=== PATIENT | female | born 1945 | race Caucasian/White ===

== ENCOUNTER 2017-11-11 13:24 | Observation (INO) ==
--- NOTE | 2017-11-11 14:04 | Emergency Department Note ---
Disposition Clinical Impression: Bradycardia, Dyspnea Hypertension Qualifiers: Hypertension type: unspecified Qualified Code(s): I10 - Essential (primary) hypertension Disposition: Admitted As Inpatient Condition: Fair General Adult HPI - General Chief complaint: ED Arrhythmia/Palpitations Stated complaint: "Afib/HTN" sent from PCP Time Seen by Provider: 11/11/17 13:36 - History of Present Illness Pain Scale: 0 - Related Data Home Medications Medication Instructions Recorded Confirmed Apixaban [Eliquis] 5 mg PO BID 11/11/17 11/11/17 Aspirin [Lo-Dose Aspirin EC] 81 mg PO DAILY 11/11/17 11/11/17 Citalopram Hydrobromide 30 mg PO HS 11/11/17 11/11/17 [Citalopram HBr] Donepezil [Aricept] 5 mg PO HS 11/11/17 11/11/17 Ferrous Sulfate [Iron] 325 mg PO 2XW 11/11/17 11/11/17 HydrOXYzine Pamoate [Vistaril] 50 mg PO TID 11/11/17 11/11/17 Metoprolol [Lopressor] 25 mg PO BID 11/11/17 11/11/17 Mirtazapine [Remeron] 30 mg PO HS 11/11/17 11/11/17 Omeprazole [PriLOSEC] 40 mg PO DAILY 11/11/17 11/11/17 Oxybutynin Chloride [Ditropan Xl] 10 mg PO DAILY 11/11/17 11/11/17 risperiDONE [Risperidone] 1 mg PO HS PRN 11/11/17 11/11/17 Allergies Allergy/AdvReac Type Severity Reaction Status Date / Time No Known Allergies Allergy Verified 11/11/17 16:36 Past Medical History - Past Medical History Medical history: Reports: COPD, dementia, GERD Surgical history: Reports: hysterectomy Psychiatric history: Reports: anxiety 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 ANALYST history - Social History Smoking Status: Current every day smoker Alcohol use: Reports: none Drug use: Reports: none Physical Exam - General General appearance: alert, in no apparent distress Course Vital Signs Temperature 97.5 F L 11/11/17 13:31 Pulse Rate 52 11/11/17 13:31 Respiratory Rate 15 11/11/17 13:31 Blood Pressure 185/98 11/11/17 13:31 O2 Sat by Pulse Oximetry 100 11/11/17 13:31 Temperature 97.8 F 11/11/17 19:37 Pulse Rate 55 11/11/17 19:37 Respiratory Rate 16 11/11/17 19:37 Blood Pressure 150/88 11/11/17 19:37 O2 Sat by Pulse Oximetry 97 11/11/17 19:37 Oxygen Delivery Oxygen Delivery Room Air Medical Decision Making - Lab Data Result diagrams: 11/11/17 14:07 11/11/17 14:07 Lab Results 11/11/17 11/11/17 11/11/17 Range/Units 14:07 14:07 14:07 WBC 9.0 (4.3-11.1) K/mcL RBC 5.01 H (3.82-4.97) M/mcL Hgb 13.8 (11.5-15.4) g/dL Hct 42.4 (35.3-44.9) % MCV 84.6 (83.0-100.0) fL MCH 27.5 L (28.0-33.3) pg MCHC 32.5 (31.6-35.5) g/dL RDW 13.2 (11.5-14.5) % Plt Count 185 (140-400) K/mcL MPV 9.6 (9.4-12.4) fL Immature Gran % 0.8 (0-4) % Seg Neutrophils % 45.8 % Lymphocytes % 40.1 % Monocytes % 9.9 % Eosinophils % 2.4 % Basophils % 1.0 % Neutrophils # 4.1 (1.6-8.9) K/mcL Lymphocytes # 3.6 (0.6-4.6) K/mcL Monocytes # 0.9 (0.0-1.3) K/mcL Eosinophils # 0.2 (0.0-0.6) K/mcL Basophils # 0.1 (0.0-0.2) K/mcL PT 14.8 H (9.4-12.1) Seconds INR 1.3 APTT 34.7 (26.0-36.0) Seconds Sodium (136-145) mEq/L Potassium (3.5-5.1) mEq/L Chloride (98-107) mEq/L Carbon Dioxide (23-29) mEq/L BUN (8-23) mg/dL Creatinine (0.60-1.20) mg/dL Est GFR ( Amer) (> 60) Est GFR (Non-Af Amer) (> 60) BUN/Creatinine Ratio (6-26) Glucose (70-105) mg/dL Calculated Osmolality (280-300) Calcium (8.6-10.3) mg/dL Troponin I (< 0.04) ng/mL B-Natriuretic Peptide 107 H (Less than 100) pg/mL 11/11/17 Range/Units 14:07 WBC (4.3-11.1) K/mcL RBC (3.82-4.97) M/mcL Hgb (11.5-15.4) g/dL Hct (35.3-44.9) % MCV (83.0-100.0) fL MCH (28.0-33.3) pg MCHC (31.6-35.5) g/dL RDW (11.5-14.5) % Plt Count (140-400) K/mcL MPV (9.4-12.4) fL Immature Gran % (0-4) % Seg Neutrophils % % Lymphocytes % % Monocytes % % Eosinophils % % Basophils % % Neutrophils # (1.6-8.9) K/mcL Lymphocytes # (0.6-4.6) K/mcL Monocytes # (0.0-1.3) K/mcL Eosinophils # (0.0-0.6) K/mcL Basophils # (0.0-0.2) K/mcL PT (9.4-12.1) Seconds INR APTT (26.0-36.0) Seconds Sodium 142 (136-145) mEq/L Potassium 3.8 (3.5-5.1) mEq/L Chloride 107 (98-107) mEq/L Carbon Dioxide 28 (23-29) mEq/L BUN 20 (8-23) mg/dL Creatinine 1.03 (0.60-1.20) mg/dL Est GFR ( Amer) > 60 (> 60) Est GFR (Non-Af Amer) 53 L (> 60) BUN/Creatinine Ratio 19 (6-26) Glucose 51 L (70-105) mg/dL Calculated Osmolality 294 (280-300) Calcium 9.5 (8.6-10.3) mg/dL Troponin I < 0.03 (< 0.04) ng/mL B-Natriuretic Peptide (Less than 100) pg/mL Attestation Statement - Attestation Attestation: I examined this patient and my medical decision-making was reviewed with the Resident Physician. I agree with the documented findings, disposition and treatment plan as described except to the extent set forth below. Patient to the ED with her daughter. Daughter called cardiology office today because her heart rate is been running in the low 50s all weekend. Her blood pressure is been high. They instructed her to come to the ED for further evaluation. Patient is without complaint. On examination she is in no acute distress. Hypertensive. Heart rate in the 50s. Pleasant conversant. Confused. Heart slow and regular. Lungs clear. Abdomen soft. Plan. Cardiac workup. We will discuss her meds with cardiology. Patient discussed with cardiology who wants her admitted for control of her asymptomatic hypertension. Hospitalist accepts.
[2017-11-11 14:22] LABS: Basophils # 0.1 K/mcL (0.0-0.2); Eosinophils # 0.2 K/mcL (0.0-0.6); Eosinophils % 2.4 %; Hematocrit 42.4 % (35.3-44.9); Hemoglobin 13.8 g/dL (11.5-15.4); Immature Granulocytes % 0.8 % (0-4); Lymphocytes # 3.6 K/mcL (0.6-4.6); Lymphocytes % 40.1 %; Mean Corpuscular HGB Conc 32.5 g/dL (31.6-35.5); Mean Corpuscular Hemoglobin 27.5 pg (28.0-33.3); Mean Corpuscular Volume 84.6 fL (83.0-100.0); Mean Platelet Volume 9.6 fL (9.4-12.4); Monocytes # 0.9 K/mcL (0.0-1.3); Monocytes % 9.9 %; Neutrophils # 4.1 K/mcL (1.6-8.9); Platelet Count 185 K/mcL (140-400); Red Blood Count 5.01 M/mcL (3.82-4.97); Red Cell Distribution Width 13.2 % (11.5-14.5); Segmented Neutrophils % 45.8 %
--- NOTE | 2017-11-11 14:22 | Emergency Department Note ---
Disposition Clinical Impression: Bradycardia Hypertension Qualifiers: Hypertension type: unspecified Qualified Code(s): I10 - Essential (primary) hypertension Dyspnea Qualifiers: Dyspnea type: dyspnea on exertion Qualified Code(s): R06.09 - Other forms of dyspnea Disposition: Admitted As Inpatient Condition: Fair Time of Disposition: 16:57 General Adult HPI - General Chief complaint: ED Arrhythmia/Palpitations Stated complaint: "Afib/HTN" sent from PCP Time Seen by Provider: 11/11/17 13:36 Source: patient Mode of arrival: ambulatory Limitations: no limitations Nursing Notes Reviewed: Yes Vital Signs Reviewed: Yes - History of Present Illness HPI Narrative: 72-year-old female with 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 fib and hypertension presents for evaluation of A. fib and hypertension. Patient's family states the patient has had low heart rates in the 50s. Also noted be hypertensive in the 180S systolic. Did call the cardiology office who recommended her to go to the ER for evaluation. Family states the patient has not complained of anything besides being cold. Patient denies any chest penetrance of breath. No fevers or cough. No abdominal pain or nausea or vomiting. No recent changes in medications. Patient is on metoprolol as well as lisinopril. Patient is also anticoagulated. Pain Scale: 0 - Related Data Home Medications Medication Instructions Recorded Confirmed Apixaban [Eliquis] 5 mg PO BID 11/11/17 11/11/17 Aspirin [Lo-Dose Aspirin EC] 81 mg PO DAILY 11/11/17 11/11/17 Citalopram Hydrobromide 30 mg PO HS 11/11/17 11/11/17 [Citalopram HBr] Donepezil [Aricept] 5 mg PO HS 11/11/17 11/11/17 Ferrous Sulfate [Iron] 325 mg PO 2XW 11/11/17 11/11/17 HydrOXYzine Pamoate [Vistaril] 50 mg PO TID 11/11/17 11/11/17 Metoprolol [Lopressor] 25 mg PO BID 11/11/17 11/11/17 Mirtazapine [Remeron] 30 mg PO HS 11/11/17 11/11/17 Omeprazole [PriLOSEC] 40 mg PO DAILY 11/11/17 11/11/17 Oxybutynin Chloride [Ditropan Xl] 10 mg PO DAILY 11/11/17 11/11/17 risperiDONE [Risperidone] 1 mg PO HS PRN 11/11/17 11/11/17 Allergies Allergy/AdvReac Type Severity Reaction Status Date / Time No Known Allergies Allergy Verified 11/11/17 16:36 All systems ED: reviewed and negative except as stated. 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 DETAILER history - Social History Smoking Status: Current every day smoker Alcohol use: Reports: none Drug use: Reports: none Physical Exam - General Limitations: no limitations General appearance: alert, in no apparent distress - Head Head exam: atraumatic, normocephalic, normal inspection - Eye Eye exam: Present: normal appearance, PERRL, EOMI - ENT ENT exam: normal exam, normal oropharynx, mucous membranes moist - Neck Neck exam: Present: normal inspection - Chest Chest inspection: Present: normal inspection, symmetric chest wall rise - Respiratory Respiratory exam: Present: normal lung sounds bilaterally. Absent: respiratory distress - Cardiovascular Cardiovascular exam: Present: regular rate, normal rhythm. Absent: systolic murmur - Abdominal Exam Abdominal exam: Present: soft, Non-Tender - Extremities Exam Extremities exam: Present: normal inspection, pedal edema (trace) - Back Exam Back exam: Present: normal inspection - Neurological Exam Neurological exam: Present: alert, oriented X3 - Skin Skin exam: Present: warm, dry, intact, normal color Course Course Narrative: Patient will get basic labs. - Reevaluation(s) Reevaluation #1: Patient's resting comfortably. No signs of acute distress. Time: 16:11 - Consultations Consultation #1: Discussed with cardiology who states that this is a hypertensive urgency and would recommend titrating her blood pressure in hospitalization. Time: 16:19 Vital Signs Temperature 97.5 F L 11/11/17 13:31 Pulse Rate 52 11/11/17 13:31 Respiratory Rate 15 11/11/17 13:31 Blood Pressure 185/98 11/11/17 13:31 O2 Sat by Pulse Oximetry 100 11/11/17 13:31 Temperature 97.8 F 11/11/17 19:37 Pulse Rate 55 11/11/17 19:37 Respiratory Rate 16 11/11/17 19:37 Blood Pressure 150/88 11/11/17 19:37 O2 Sat by Pulse Oximetry 97 11/11/17 19:37 Oxygen Delivery Oxygen Delivery Room Air Medical Decision Making - MDM Narrative Medical decision making narrative: Patient presented for concerns of elevated blood pressure and bradycardia. No recent change in that medication. Patient case was discussed with the on-call sand digger who states that the patient was complaining shortness of breath via telephone conversation was told to go to the ER. Concerns of elevated blood pressure in the setting of dyspnea. Patient family states that the patient's been more dyspneic with exertion. Oxygen saturation at rest is normal. Patient blood pressure was elevated with no recent changes in this medication. Will gradually decrease the patient's blood pressure see if she gets any symptomatic improvement. Patient's chest x-ray reveals atelectasis versus pneumonia. More likely atelectasis versus pneumonia as the patient does not have a fever or productive cough. Patient was noted be hypoglycemic. Patient is tolerating oral intake and blood sugar was rechecked. Patient would likely better adequate blood pressure control prior to discharge. - Lab Data Lab results reviewed: Yes I reviewed the patient's lab results. Result diagrams: 11/11/17 14:07 11/11/17 14:07 Lab Results 11/11/17 11/11/17 11/11/17 Range/Units 14:07 14:07 14:07 WBC 9.0 (4.3-11.1) K/mcL RBC 5.01 H (3.82-4.97) M/mcL Hgb 13.8 (11.5-15.4) g/dL Hct 42.4 (35.3-44.9) % MCV 84.6 (83.0-100.0) fL MCH 27.5 L (28.0-33.3) pg MCHC 32.5 (31.6-35.5) g/dL RDW 13.2 (11.5-14.5) % Plt Count 185 (140-400) K/mcL MPV 9.6 (9.4-12.4) fL Immature Gran % 0.8 (0-4) % Seg Neutrophils % 45.8 % Lymphocytes % 40.1 % Monocytes % 9.9 % Eosinophils % 2.4 % Basophils % 1.0 % Neutrophils # 4.1 (1.6-8.9) K/mcL Lymphocytes # 3.6 (0.6-4.6) K/mcL Monocytes # 0.9 (0.0-1.3) K/mcL Eosinophils # 0.2 (0.0-0.6) K/mcL Basophils # 0.1 (0.0-0.2) K/mcL PT 14.8 H (9.4-12.1) Seconds INR 1.3 APTT 34.7 (26.0-36.0) Seconds Sodium (136-145) mEq/L Potassium (3.5-5.1) mEq/L Chloride (98-107) mEq/L Carbon Dioxide (23-29) mEq/L BUN (8-23) mg/dL Creatinine (0.60-1.20) mg/dL Est GFR ( Amer) (> 60) Est GFR (Non-Af Amer) (> 60) BUN/Creatinine Ratio (6-26) Glucose (70-105) mg/dL Calculated Osmolality (280-300) Calcium (8.6-10.3) mg/dL Troponin I (< 0.04) ng/mL B-Natriuretic Peptide 107 H (Less than 100) pg/mL 11/11/17 Range/Units 14:07 WBC (4.3-11.1) K/mcL RBC (3.82-4.97) M/mcL Hgb (11.5-15.4) g/dL Hct (35.3-44.9) % MCV (83.0-100.0) fL MCH (28.0-33.3) pg MCHC (31.6-35.5) g/dL RDW (11.5-14.5) % Plt Count (140-400) K/mcL MPV (9.4-12.4) fL Immature Gran % (0-4) % Seg Neutrophils % % Lymphocytes % % Monocytes % % Eosinophils % % Basophils % % Neutrophils # (1.6-8.9) K/mcL Lymphocytes # (0.6-4.6) K/mcL Monocytes # (0.0-1.3) K/mcL Eosinophils # (0.0-0.6) K/mcL Basophils # (0.0-0.2) K/mcL PT (9.4-12.1) Seconds INR APTT (26.0-36.0) Seconds Sodium 142 (136-145) mEq/L Potassium 3.8 (3.5-5.1) mEq/L Chloride 107 (98-107) mEq/L Carbon Dioxide 28 (23-29) mEq/L BUN 20 (8-23) mg/dL Creatinine 1.03 (0.60-1.20) mg/dL Est GFR ( Amer) > 60 (> 60) Est GFR (Non-Af Amer) 53 L (> 60) BUN/Creatinine Ratio 19 (6-26) Glucose 51 L (70-105) mg/dL Calculated Osmolality 294 (280-300) Calcium 9.5 (8.6-10.3) mg/dL Troponin I < 0.03 (< 0.04) ng/mL B-Natriuretic Peptide (Less than 100) pg/mL - Radiology Data Radiology results reviewed: Yes I reviewed the patient's radiology results. - EKG Data EKG #1 EKG attestation: Yes I reviewed and interpreted this EKG. EKG shows normal: sinus rhythm Rate: bradycardia Rhythm: NSR Thor/QRS: normal T wave inversions noted in: v1 When compared to previous EKG there are: no significant changes Interpretation: no acute changes S.B.A.R. - S.B.A.R. Situation: Demographics Background: Presenting Complaint Assessment: Vital Signs, Course and respsone to treatment, Patient/Family Expectation Recommendation: Barrier(s) to disposition, Recommendation based on pending studies, treatments, or consults S.B.A.R. Report Given to: Dr. Mendez SMaria [email or web address] Repor Time: 16:57
[2017-11-11 14:29] LABS: INR 1.3; Prothrombin Time 14.8 Seconds (9.4-12.1)
[2017-11-11 14:32] LABS: Activated Partial Thrombo Time 34.7 Seconds (26.0-36.0)
[2017-11-11 14:46] LABS: Troponin I < 0.03 ng/mL (< 0.04)
[2017-11-11 14:58] LABS: BUN/Creatinine Ratio 19 (6-26); Blood Urea Nitrogen 20 mg/dL (8-23); Calcium 9.5 mg/dL (8.6-10.3); Carbon Dioxide 28 mEq/L (23-29); Chloride 107 mEq/L (98-107); Glucose 51 mg/dL (70-105); Osmolality,Calculated 294 (280-300); Potassium 3.8 mEq/L (3.5-5.1); Sodium 142 mEq/L (136-145); eGFR For Non-African Americans 53 (> 60)
[2017-11-11] MEDS ORDERED: Naloxone 0.4 MG/ML INJ IVP PRN (17:27)
[2017-11-11] MEDS ORDERED: Acetaminophen 325 MG TABLET PO PRN (17:27)
[2017-11-11] MEDS ORDERED: risperiDONE 1 MG TABLET PO PRN (17:28)
--- NOTE | 2017-11-11 18:07 | Internal Med History&Physical ---
Date of Encounter: 11/11/17 Time of Encounter: 18:05 Internal Medicine - H&P: HPI Chief complaint: Hypertensive urgency Admitted From: Emergency Dept Plans for Post Hospital Care: Home History of present illness: Ms. Hill is a 72 year old female patient with history of atrial fibrillation, hypertension, dementia and MRDD who presented to the ER with complaints of elevated blood pressure. She was seen by her mental health provider on Saturday and was found to have high blood pressure. They advised her to monitor her blood pressure which her daughter has been doing. She continued to be severely hypertensive. She was also noted to be bradycardic with a heart rate in the 40s. As such she came to the ER. She denies any chest pain or palpitations. No blurred vision. No headache. No orthopnea or PND. She does get exertional dyspnea with minimal exertion. She denies any dizziness or lightheadedness. Past Med Surg Social Fam HX - Past Medical History Attestation: Yes The following information was validated with the patient. Source: patient Medical history: COPD, dementia, GERD Additional medical history: emphysema. mental retardation Psychiatric history: anxiety - Past Surgical History Surgical History: hysterectomy - Social History Smoking Status: Current every day smoker Alcohol use: none Drug use: none - Additional Family History Additional family history: Family history reviewed and found to be noncontributory at this time Internal Medicine - H&P: Meds Apixaban [Eliquis] 5 mg PO BID 11/11/17 [History] Aspirin [Lo-Dose Aspirin EC] 81 mg PO DAILY 11/11/17 [History] Citalopram Hydrobromide [Citalopram HBr] 30 mg PO HS 11/11/17 [History] Donepezil [Aricept] 5 mg PO HS 11/11/17 [History] Ferrous Sulfate [Iron] 325 mg PO 2XW 11/11/17 [History] HydrOXYzine Pamoate [Vistaril] 50 mg PO TID 11/11/17 [History] Metoprolol [Lopressor] 25 mg PO BID 11/11/17 [History] Mirtazapine [Remeron] 30 mg PO HS 11/11/17 [History] Omeprazole [PriLOSEC] 40 mg PO DAILY 11/11/17 [History] Oxybutynin Chloride [Ditropan Xl] 10 mg PO DAILY 11/11/17 [History] risperiDONE [Risperidone] 1 mg PO HS PRN 11/11/17 [History] 3 Allergy/AdvReac Type Severity Reaction Status Date / Time No Known Allergies Allergy Verified 11/11/17 16:36 All Systems PM: A 10-system review of systems was performed and is negative for pertinent findings except as documented above in the HPI. - Constitutional Constitutional: no chills, no fever(s), no night sweats - EENT Eyes: no change in vision, no discharge, no pain, no photophobia Ears: no ear discharge, no ear pain, no tinnitus Nose, mouth and throat: no dysphagia, no nasal discharge, no neck pain, no sore throat - Cardiovascular Cardiovascular ROS IM: no chest pain, no diaphoresis, no dyspnea, no lightheadedness, no palpitations, no syncope - Respiratory Respiratory: dyspnea on exertion, no cough, no dyspnea, no wheezing, no excessive phlegm production - Gastrointestinal Gastrointestinal: no abdominal pain, no diarrhea, no hematemesis, no hematochezia, no melena, no nausea, no vomiting - Genitourinary Genitourinary: no change in urinary stream, no dysuria, no flank pain, no hematuria - Musculoskeletal Musculoskeletal ROS IM: no numbness, no tingling - Integumentary Integumentary IM: no rash, no unusual bruising - Neurological Neurological ROS: no confusion, no convulsions, no focal weakness, no numbness, no tingling, no tremor(s) - Hematologic/Lymphatic Hematologic/Lymphatic: no easy bruising - Constitutional Vitals: Temp Pulse Resp BP Pulse Ox 97.5 F L 48 16 161/87 99 11/11/17 13:52 11/11/17 17:05 11/11/17 17:54 11/11/17 17:54 11/11/17 17:05 General appearance: Present: cooperative, A&O X 3, pleasant, no acute distress, answers questions appropriately Exam: . - Neck Neck exam general surgery: Present: supple, trachea midline. Absent: lymphadenopathy - Respiratory Respiratory exam: Present: CTAB. Absent: accessory muscle use, rales, rhonchi, wheezes - Cardiovascular Cardiovascular exam: Present: RRR, +S1, +S2. Absent: diastolic murmur, gallop, rubs, systolic murmur - GI/Abdominal GI/Abdominal exam: Present: normal bowel sounds, soft, no peritoneal signs. Absent: distended, tenderness - Extremities Exam Extremities exam: Present: warm, radial pulses palpable and symmetrical. Absent : calf tenderness, cyanotic, pedal edema - Neurological Exam Neurological exam: Present: CN II-XII intact, oriented X3, no focal deficits. Absent: facial droop, speech deficit Internal Med - H&P Results - Labs CBC & Chem 7: 11/11/17 14:07 11/11/17 14:07 - EKG Data -: EKG Interpreted by Myself EKG shows normal: sinus rhythm Rate: bradycardia - Assessment and plan (1) Hypertensive urgency Current Visit: Yes Status: Acute Assessment and plan: Patient with accelerated hypertension. No signs of end organ damage. Monitor vital signs closely. Patient takes metoprolol at home. However she has been bradycardic. Will hold metoprolol for now. Start patient on amlodipine. We will also add hydralazine 10 mg IV every 6 ours as needed for systolic blood pressure greater than 160. (2) Atrial fibrillation Current Visit: Yes Status: Chronic Assessment and plan: Currently in sinus rhythm with bradycardia. Possible sick sinus syndrome. Will monitor with telemetry. Hold metoprolol for now. Continue anticoagulation with Eliquis. Denies any dizziness or lightheadedness but does have exertional dyspnea. Qualifiers: Atrial fibrillation type: chronic Qualified Code(s): I48.2 - Chronic atrial fibrillation (3) Dementia Current Visit: Yes Status: Chronic Assessment and plan: Continue Aricept Qualifiers: Dementia type: unspecified type Dementia behavioral disturbance: without behavioral disturbance Qualified Code(s): F03.90 - Unspecified dementia without behavioral disturbance (4) Bradycardia Current Visit: Yes Status: Acute Assessment and plan: Management as above (5) Dyspnea Current Visit: Yes Status: Chronic Assessment and plan: Patient reports chronic exertional dyspnea. Reviewing her records, she had a 2- D echocardiogram done in May of this year which showed EF of 60% with indeterminate diastolic function. She does not have pedal edema at this time. However her BNP is elevated. Will recheck 2-D echocardiogram. Start patient on low-dose Lasix. Qualifiers: Dyspnea type: dyspnea on exertion Qualified Code(s): R06.09 - Other forms of dyspnea - Time Spent With Patient Total time spent is greater than 50% in coordination of care (as documented) at patient's floor/unit and/or counseling patient:
[2017-11-11] MEDS: amLODIPine 5 MG TABLET PO SCH (18:53)
[2017-11-11] MEDS: Apixaban 5 MG TABLET PO SCH (20:20)
[2017-11-11] MEDS: hydrOXYzine pamoate 25 MG CAPSULE PO SCH (20:20)
[2017-11-11] MEDS: Mirtazapine 15 MG TABLET PO SCH (20:20)
[2017-11-12] MEDS: Aspirin Enteric Coated 81 MG Tablet PO SCH (07:48)
[2017-11-12] MEDS: hydrOXYzine pamoate 25 MG CAPSULE PO SCH ×3 (07:48→22:29)
[2017-11-12] MEDS: Apixaban 5 MG TABLET PO SCH ×2 (07:48→22:29)
[2017-11-12] MEDS: amLODIPine 5 MG TABLET PO SCH (07:48)
--- NOTE | 2017-11-12 10:04 | Internal Med Progress Note ---
Hospitalist Progress Note - Encounter Date of Encounter: 11/12/17 Time of Encounter: 10:03 - Subjective Interval History: Patient seen and examined at bedside Denies any CP or SOB at this time . Awaiting echo results - Exam Vitals: Temp Pulse Resp BP Pulse Ox 98.1 F 53 16 144/89 94 11/12/17 07:33 11/12/17 07:33 11/12/17 07:33 11/12/17 07:33 11/12/17 07:33 Exam: .General appearance: Present: cooperative, A&O X 3, pleasant, no acute distress , answers questions appropriately Exam: - Neck Neck exam general surgery: Present: supple, trachea midline. Absent: lymphadenopathy - Respiratory Respiratory exam: Present: CTAB. Absent: accessory muscle use, rales, rhonchi, wheezes - Cardiovascular Cardiovascular exam: Present: RRR, +S1, +S2. Absent: diastolic murmur, gallop, rubs, systolic murmur - GI/Abdominal GI/Abdominal exam: Present: normal bowel sounds, soft, no peritoneal signs. Absent: distended, tenderness - Extremities Exam Extremities exam: Present: warm, radial pulses palpable and symmetrical. Absent : calf tenderness, cyanotic, pedal edema - Neurological Exam Neurological exam: Present: CN II-XII intact, oriented X3, no focal deficits. Absent: facial droop, speech deficit - Assessment and Plan (1) Bradycardia Current Visit: Yes Status: Acute Assessment and Plan: Management as above (2) Dyspnea Current Visit: Yes Status: Chronic Assessment and Plan: Has been experiencing exertional dyspnea she did have a 2-D echo in May which showed EF of 60% with indeterminate diastolic function. BMP was elevated and she was given on low-dose Lasix. We will wait for echo results continue to monitor (3) Hypertensive urgency Current Visit: Yes Status: Acute Assessment and Plan: Patient presented with accelerated hypertension. No signs of end organ damage. Monitor vital signs closely. Patient takes metoprolol at home. However she has been bradycardic. Will hold metoprolol for now. HR has improved - sinus at 68 Start patient on amlodipine. We will also add hydralazine 10 mg IV every 6 ours as needed for systolic blood pressure greater than 160. (4) Atrial fibrillation Current Visit: Yes Status: Chronic Assessment and Plan: Currently in sinus rhythm with bradycardia. Possible sick sinus syndrome. Will monitor with telemetry. Hold metoprolol for now. Continue anticoagulation with Eliquis. Denies any dizziness or lightheadedness - will ambulate patient to see if dyspnea improving (5) Dementia Current Visit: Yes Status: Chronic Assessment and Plan: Continue Aricept - Time Spent with Patient Total time spent is greater than 50% in coordination of care (as documented) at patient's floor/unit and/or counseling patient: Internal Medicine: Result - Labs CBC & Chem 7: 11/11/17 14:07 11/11/17 14:07 - ABG Interpretation ABG results: PT/INR, D-dimer PT 14.8 Seconds (9.4-12.1) H 11/11/17 14:07 Consult Discharge Plan - Plan Referrals: Addison Whitney DO [Primary Care Provider] - (Requested a follow up appointment in 08-27, with Addison Whitney. ) (2) Dyspnea Qualifiers: Dyspnea type: dyspnea on exertion Qualified Code(s): R06.09 - Other forms of dyspnea (4) Atrial fibrillation Qualifiers: Atrial fibrillation type: chronic Qualified Code(s): I48.2 - Chronic atrial fibrillation (5) Dementia Qualifiers: Dementia type: unspecified type Dementia behavioral disturbance: without behavioral disturbance Qualified Code(s): F03.90 - Unspecified dementia without behavioral disturbance
[2017-11-12] MEDS ORDERED: amLODIPine 5 MG TABLET PO SCH (14:20)
[2017-11-12] MEDS ORDERED: Furosemide 20 MG/2 ML VIAL IVP SCH (14:30)
[2017-11-12] MEDS: Mirtazapine 15 MG TABLET PO SCH (22:30)
[2017-11-13 05:35] LABS: Basophils # 0.1 K/mcL (0.0-0.2); Basophils % 1.3 %; Eosinophils # 0.2 K/mcL (0.0-0.6); Eosinophils % 2.7 %; Hematocrit 43.3 % (35.3-44.9); Hemoglobin 14.1 g/dL (11.5-15.4); Immature Granulocytes % 0.6 % (0-4); Lymphocytes # 3.5 K/mcL (0.6-4.6); Lymphocytes % 40.5 %; Mean Corpuscular HGB Conc 32.6 g/dL (31.6-35.5); Mean Corpuscular Hemoglobin 27.3 pg (28.0-33.3); Mean Corpuscular Volume 83.8 fL (83.0-100.0); Mean Platelet Volume 9.8 fL (9.4-12.4); Monocytes # 0.7 K/mcL (0.0-1.3); Monocytes % 8.2 %; Platelet Count 182 K/mcL (140-400); Red Blood Count 5.17 M/mcL (3.82-4.97); Red Cell Distribution Width 13.3 % (11.5-14.5); Segmented Neutrophils % 46.7 %
[2017-11-13 05:48] LABS: BUN/Creatinine Ratio 21 (6-26); Blood Urea Nitrogen 20 mg/dL (8-23); Calcium 9.7 mg/dL (8.6-10.3); Carbon Dioxide 26 mEq/L (23-29); Chloride 107 mEq/L (98-107); Glucose 111 mg/dL (70-105); Osmolality,Calculated 297 (280-300); Potassium 3.7 mEq/L (3.5-5.1); Sodium 142 mEq/L (136-145); eGFR For Non-African Americans 57 (> 60)
[2017-11-13] MEDS ORDERED: Furosemide 20 MG/2 ML VIAL IVP SCH (09:00)
[2017-11-13] MEDS ORDERED: amLODIPine 5 MG TABLET PO SCH (09:00)
[2017-11-13] MEDS: Apixaban 5 MG TABLET PO SCH ×2 (09:05→20:52)
[2017-11-13] MEDS: Aspirin Enteric Coated 81 MG Tablet PO SCH (09:05)
[2017-11-13] MEDS: hydrOXYzine pamoate 25 MG CAPSULE PO SCH ×3 (09:05→20:52)
--- NOTE | 2017-11-13 17:36 | Electrocardiograph Report ---
[place] [id number] Test Date: 2017-11-11 Pat Name: Winsome Hill Department: EXAMC3 Room: 3B23 Gender: F Fan Mail Editor: : 1945 Requested By: Yobani Stewart Order Number: [id number] Reading MD: Ashwini Farfan Measurements Intervals [place] Rate: 51 P: 74 KS: 165 QRS: 40 QRSD: 88 T: 48 QT: 525 QTc: 484 Interpretive Statements Sinus rhythm Abnormal R-wave progression, early transition Electronically Signed On 11-13-2017 17:34:18 EDT by Ashwini Farfan
--- NOTE | 2017-11-13 19:21 | Internal Med Progress Note ---
Hospitalist Progress Note - Encounter Date of Encounter: 11/13/17 Time of Encounter: 15:00 - Subjective Interval History: Patient seen and examined at bedside Denies any CP or SOB at this time . Patient is asking to go home. I did discuss with the patient and daughter concerns about HR- discussed treatment plan - and possible cardiology consult Verbalized understanding - Exam Vitals: Temp Pulse Resp BP Pulse Ox 97.7 F 63 15 115/70 96 11/13/17 18:59 11/13/17 18:59 11/13/17 18:59 11/13/17 18:59 11/13/17 18:59 Exam: .General appearance: Present: cooperative, A&O X 3, pleasant, no acute distress , answers questions appropriately Exam: - Neck Neck exam general surgery: Present: supple, trachea midline. Absent: lymphadenopathy - Respiratory Respiratory exam: Present: CTAB. Absent: accessory muscle use, rales, rhonchi, wheezes - Cardiovascular Cardiovascular exam: Present: RRR, +S1, +S2. Absent: diastolic murmur, gallop, rubs, systolic murmur - GI/Abdominal GI/Abdominal exam: Present: normal bowel sounds, soft, no peritoneal signs. Absent: distended, tenderness - Extremities Exam Extremities exam: Present: warm, radial pulses palpable and symmetrical. Absent : calf tenderness, cyanotic, pedal edema - Neurological Exam Neurological exam: Present: CN II-XII intact, oriented X3, no focal deficits. Absent: facial droop, speech deficit - Assessment and Plan (1) Bradycardia Current Visit: Yes Status: Acute Assessment and Plan: Metoprolol initially held - HR did improve to rate 90 -100 sinus - no pauses noted on monitor overnight. We will resume metoprolol at a lower dose and monitor BP and HR Consult cardiology as needed - possible pacemaker (2) Dyspnea Current Visit: Yes Status: Chronic Assessment and Plan: Has been experiencing exertional dyspnea she did have a 2-D echo in May which showed EF of 60% with indeterminate diastolic function. BMP was elevated and she was given on low-dose Lasix. 11/13 repeat echo LVEF 60-65%. * Normal LV chamber size, wall thickness and function. * Normal left ventricular diastolic function. Normal right ventricular structure and function. Moderately dilated left atrium.Normal right atrial size. No evidence of PFO by color Doppler. (3) Hypertensive urgency Current Visit: Yes Status: Acute Assessment and Plan: Patient presented with accelerated hypertension. No signs of end organ damage. Monitor vital signs closely. Patient takes metoprolol at home. However she has been bradycardic. Will hold metoprolol for now. HR has improved - sinus at 68 Start patient on amlodipine. We will also add hydralazine 10 mg IV every 6 ours as needed for systolic blood pressure greater than 160. 11/13- BP has been stable - we will stop norvasc and start Metoprolol monitor BP (4) Atrial fibrillation Current Visit: Yes Status: Chronic Assessment and Plan: Currently in sinus rhythm with bradycardia. Possible sick sinus syndrome. Will monitor with telemetry. Hold metoprolol for now. Continue anticoagulation with Eliquis. Denies any dizziness or lightheadedness - will ambulate patient to see if dyspnea improving 11/13 Currently SR- HR improved after holding Metoprolol -will resume at a lower dose and monitor - if no improvement consult cardiology Continue anticoagulation with Eliquis. (5) Dementia Current Visit: Yes Status: Chronic Assessment and Plan: Continue Aricept - Time Spent with Patient Total time spent is greater than 50% in coordination of care (as documented) at patient's floor/unit and/or counseling patient: Internal Medicine: Result - Labs CBC & Chem 7: 11/13/17 04:27 11/13/17 04:27 Labs: Short CBC 11/13/17 Range/Units 04:27 WBC 8.5 (4.3-11.1) K/mcL Hgb 14.1 (11.5-15.4) g/dL Hct 43.3 (35.3-44.9) % Plt Count 182 (140-400) K/mcL Neutrophils # 4.0 (1.6-8.9) K/mcL BMP 11/13/17 04:27 Sodium 142 Potassium 3.7 Chloride 107 Carbon Dioxide 26 BUN 20 Creatinine 0.97 Glucose 111 H Calcium 9.7 - ABG Interpretation ABG results: PT/INR, D-dimer PT 14.8 Seconds (9.4-12.1) H 11/11/17 14:07 Consult Discharge Plan - Plan Referrals: Addison Whitney DO [Primary Care Provider] - 11/20/17 2:30 pm (. ) (2) Dyspnea Qualifiers: Dyspnea type: dyspnea on exertion Qualified Code(s): R06.09 - Other forms of dyspnea (4) Atrial fibrillation Qualifiers: Atrial fibrillation type: chronic Qualified Code(s): I48.2 - Chronic atrial fibrillation (5) Dementia Qualifiers: Dementia type: unspecified type Dementia behavioral disturbance: without behavioral disturbance Qualified Code(s): F03.90 - Unspecified dementia without behavioral disturbance
[2017-11-13] MEDS: Mirtazapine 15 MG TABLET PO SCH (20:54)
[2017-11-14 06:28] LABS: Basophils # 0.1 K/mcL (0.0-0.2); Eosinophils # 0.2 K/mcL (0.0-0.6); Eosinophils % 2.8 %; Hematocrit 42.9 % (35.3-44.9); Hemoglobin 13.7 g/dL (11.5-15.4); Immature Granulocytes % 0.6 % (0-4); Lymphocytes # 3.5 K/mcL (0.6-4.6); Lymphocytes % 40.2 %; Mean Corpuscular HGB Conc 31.9 g/dL (31.6-35.5); Mean Corpuscular Volume 84.6 fL (83.0-100.0); Monocytes # 0.8 K/mcL (0.0-1.3); Monocytes % 9.3 %; Platelet Count 173 K/mcL (140-400); Red Blood Count 5.07 M/mcL (3.82-4.97); Red Cell Distribution Width 13.4 % (11.5-14.5); Segmented Neutrophils % 46.1 %
[2017-11-14 06:59] LABS: BUN/Creatinine Ratio 24 (6-26); Blood Urea Nitrogen 22 mg/dL (8-23); Calcium 9.5 mg/dL (8.6-10.3); Carbon Dioxide 28 mEq/L (23-29); Chloride 105 mEq/L (98-107); Glucose 93 mg/dL (70-105); Osmolality,Calculated 291 (280-300); Potassium 3.7 mEq/L (3.5-5.1); Sodium 139 mEq/L (136-145); eGFR For Non-African Americans > 60 (> 60)
[2017-11-14 07:38] VITALS: BP 135/76
[2017-11-14] MEDS: Apixaban 5 MG TABLET PO SCH (08:47)
[2017-11-14] MEDS: Aspirin Enteric Coated 81 MG Tablet PO SCH (08:48)
[2017-11-14] MEDS: hydrOXYzine pamoate 25 MG CAPSULE PO SCH (08:49)
--- NOTE | 2017-11-14 10:02 | Discharge Summary ---
- NOTES TO OUTPATIENT PROVIDER Notes to Outpatient Provider: metorprolol decreased to 12.5mg BID. Advised patient to keep BP/HR log Orders not resulted at time of discharge: Pending orders 11/14/17 07:57 EKG [ECG 12 lead ECG] [ECG] Routine 11/15/17 04:00 CBC [Complete Blood Count] [HEME] AM 0400 Chem 7 [Basic Metabolic Panel] AM 0400 Date of Encounter: 11/14/17 Time of Encounter: 10:00 - Discharge Diagnosis (1) Bradycardia Priority: Primary Status: Acute (2) Dyspnea Priority: Secondary Status: Chronic Qualifiers: Dyspnea type: dyspnea on exertion Qualified Code(s): R06.09 - Other forms of dyspnea (3) Hypertensive urgency Priority: Secondary Status: Acute (4) Atrial fibrillation Priority: Secondary Status: Chronic Qualifiers: Atrial fibrillation type: chronic Qualified Code(s): I48.2 - Chronic atrial fibrillation (5) Dementia Priority: Secondary Status: Chronic Qualifiers: Dementia type: unspecified type Dementia behavioral disturbance: without behavioral disturbance Qualified Code(s): F03.90 - Unspecified dementia without behavioral disturbance Hospital course: Ms. Hill is a 72 year old female PMH of atrial fibrilation dementia and MRDD who presented to [facility] ED with complaints of elevated BP. She was seen by mental health professional earlier in the week and was found to have elevated BP was advised to monitor BP and to go to ER if remained elevated. She presented with BP 185/98, NO CP headaches or vision changes. EKG did show bradycardia with HR in the 40s She does have extertional dyspnea. Her BB was held and she was placed on amlodipine- Her BP was controlled, HR [id number], review of EKG did show any pauses or arrhythmias. Amlodipine was stopped and metoprolol restarted at lower dose 12.5mg BID. Again monitored overnight- HR stable - ranging from 49-90- no pauses or arrhythmias. She was ambulated in hallway with no dyspnea, maintaining HR 75. BP stable with systolic ranging from 107-135 and diastolic 88-76. She denies any CP palpitations or SOB Advised patient to follow up with PCP and cardiology since these providers know her best and can adjust medications accordingly. I discussed with the patient and her daughter about keeping a BP/HR log and to present to PCP/cardiology- I answered questions asked by the daughter and patient to the best of my ability. They verbalized understanding about medications and follow up appointments. She is hemodynamically stable and ready for discharge - Time Spent with Patient Total time spent providing and/or coordinating discharge services: - Discharge Medications Home Medications: Apixaban [Eliquis] 5 mg PO BID 11/11/17 [History] Aspirin [Lo-Dose Aspirin EC] 81 mg PO DAILY 11/11/17 [History] Citalopram Hydrobromide [Citalopram HBr] 30 mg PO HS 11/11/17 [History] Donepezil [Aricept] 5 mg PO HS 11/11/17 [History] Ferrous Sulfate [Iron] 325 mg PO 2XW 11/11/17 [History] HydrOXYzine Pamoate [Vistaril] 50 mg PO TID 11/11/17 [History] Mirtazapine [Remeron] 30 mg PO HS 11/11/17 [History] Omeprazole [PriLOSEC] 40 mg PO DAILY 11/11/17 [History] Oxybutynin Chloride [Ditropan Xl] 10 mg PO DAILY 11/11/17 [History] risperiDONE [Risperidone] 1 mg PO HS PRN 11/11/17 [History] Metoprolol [Lopressor] 12.5 mg PO BID #30 11/14/17 [Rx] Allergies/Adverse Reactions: 3 Allergy/AdvReac Type Severity Reaction Status Date / Time No Known Allergies Allergy Verified 11/11/17 16:36 Date of admission: 11/11/17 17:16 Primary care physician: Addison Whitney Consults: 11/13/17 18:19 Consult to Advice Clerk [CONS] Routine Reason for SW Consult: Family requesting POA Discharging clinician: Salina Sidhu Anticipated date of discharge: 11/14/17 - Constitutional Vitals: Temp Pulse Resp BP Pulse Ox 97.5 F L 53 15 135/76 96 11/14/17 07:36 11/14/17 07:36 11/14/17 07:36 11/14/17 07:36 11/14/17 07:36 General appearance: Present: cooperative, A&O X 3, pleasant, no acute distress, answers questions appropriately Exam: .General appearance: Present: cooperative, A&O X 3, pleasant, no acute distress , answers questions appropriately Exam: - Neck Neck exam general surgery: Present: supple, trachea midline. Absent: lymphadenopathy - Respiratory Respiratory exam: Present: CTAB. Absent: accessory muscle use, rales, rhonchi, wheezes - Cardiovascular Cardiovascular exam: Present: RRR, +S1, +S2. Absent: diastolic murmur, gallop, rubs, systolic murmur - GI/Abdominal GI/Abdominal exam: Present: normal bowel sounds, soft, no peritoneal signs. Absent: distended, tenderness - Extremities Exam Extremities exam: Present: warm, radial pulses palpable and symmetrical. Absent : calf tenderness, cyanotic, pedal edema - Neurological Exam Neurological exam: Present: CN II-XII intact, oriented X3, no focal deficits. Absent: facial droop, speech deficit - Head Head exam: Present: atraumatic, normocephalic - Eye Eye exam: Present: PERRL, conjuntiva pink, sclera anicteric Pupils: Present: PERRL - Neck Neck exam general surgery: Present: supple, trachea midline. Absent: lymphadenopathy - Respiratory Respiratory exam: Present: CTAB. Absent: accessory muscle use, rales, rhonchi, wheezes - Cardiovascular Cardiovascular exam: Present: RRR, +S1, +S2. Absent: diastolic murmur, gallop, rubs, systolic murmur - GI/Abdominal GI/Abdominal exam: Present: normal bowel sounds, soft, no peritoneal signs. Absent: distended, tenderness - Extremities Exam Extremities exam: Present: warm, radial pulses palpable and symmetrical. Absent : calf tenderness, cyanotic, pedal edema - Neurological Exam Neurological exam: Present: CN II-XII intact, oriented X3, no focal deficits. Absent: pronater drift, facial droop, speech deficit - Skin Skin exam: Present: dry, intact - Patient Status Disposition: Home, Self-Care Condition: Fair Functional capacity at discharge: independent ambulation Overall status at discharge: patient is back to baseline - Discharge Instructions Instructions: Atrial Fibrillation (DC), Chronic Hypertension (DC) Follow Up With: Saleem Ellis GAS PIT WORKER [Advanced Practice Nurse] - (Our office will call you with an appointment.) Addison Whitney DO [Primary Care Provider] - 11/20/17 2:30 pm (. ) - Diet and Activity Activity: increase activity as tolerated Diet: advance to your usual diet
== END 2017-11-14 11:58 | disposition home or self-care (01) ==
LOC: 3BNU 13:24 → EMEROOARM 13:24 → 3BNU 18:30
PROVIDERS: ADMIT Internal Medicine; ATTEND Internal Medicine

== ENCOUNTER 2018-10-21 21:30 | Observation (INO) ==
[2018-10-21] MEDS ORDERED: 0.9 % Sodium Chloride 1,000 ML IVC ONE (22:00)
--- NOTE | 2018-10-21 22:09 | Emergency Department Note ---
Disposition Clinical Impression: Altered mental status Qualifiers: Altered mental status type: somnolence Qualified Code(s): R40.0 - Somnolence Disposition: Still a Patient Referrals: Addison Whitney DO [Primary Care Provider] - Forms: ED Satisfaction Letter Time of Disposition: 22:59 Altered Mental Status HPI - General Chief Complaint: ED Altered Mental Status Stated Complaint: came home from dayhab. been sleeping. afib Time Seen by Provider: 10/21/18 21:39 Source: family Limitations: altered mental status Nursing Notes Reviewed: Yes Vital Signs Reviewed: Yes - History of Present Illness HPI Narrative: 73F with PMHx of dementia, COPD and HTN presents to the ED with her daughter with concern for altered mental status. Pt returned from adult day care today and has been somnolent and altered since. Daughter states she has complained of abdominal pain, and has vomited several times since being home today. Pt has never had alteration of mentation like this before. Pt has not been having any recent sick type symptoms recently according to daughter. - Related Data Home Medications Medication Instructions Recorded Confirmed Apixaban [Eliquis] 5 mg PO BID 11/11/17 11/11/17 Aspirin [Lo-Dose Aspirin EC] 81 mg PO DAILY 11/11/17 11/11/17 Citalopram Hydrobromide 30 mg PO HS 11/11/17 11/11/17 [Citalopram HBr] Donepezil [Aricept] 5 mg PO HS 11/11/17 11/11/17 Ferrous Sulfate [Iron] 325 mg PO 2XW 11/11/17 11/11/17 HydrOXYzine Pamoate [Vistaril] 50 mg PO TID 11/11/17 11/11/17 Mirtazapine [Remeron] 30 mg PO HS 11/11/17 11/11/17 Omeprazole [PriLOSEC] 40 mg PO DAILY 11/11/17 11/11/17 Oxybutynin Chloride [Ditropan XL] 10 mg PO DAILY 11/11/17 11/11/17 risperiDONE [Risperidone] 1 mg PO HS PRN 11/11/17 11/11/17 Previous Rx's Medication Instructions Recorded Metoprolol [Lopressor] 12.5 mg PO BID #30 11/14/17 predniSONE [PredniSONE] 40 mg PO DAILY #4 tablet 01/12/18 Ondansetron ODT [Zofran ODT] 4 mg SL Q4HR PRN #6 tab.rapdis 01/19/18 Allergies Allergy/AdvReac Type Severity Reaction Status Date / Time No Known Allergies Allergy Verified 10/21/18 21:37 All systems ED: reviewed and negative except as stated. Review of Systems: As Per HPI Constitutional: Reports: fever, weakness. Denies: chills Cardiovascular: Denies: chest pain, palpitations, dyspnea on exertion Respiratory: Denies: cough, dyspnea, wheezes Gastrointestinal: Reports: abdominal pain, nausea, vomiting. Denies: diarrhea Genitourinary: Denies: dysuria, hematuria Musculoskeletal: Denies: back pain, neck pain Neurological: Denies: headache Endocrine: Reports: fatigue Past Medical History - Past Medical History Attestation: Yes The following information was validated with the patient. Source: patient, old records reviewed Medical history: Reports: atrial fibrillation, COPD, dementia, GERD, hyperlipidemia Surgical history: Reports: hysterectomy Psychiatric history: Reports: anxiety COMPUTER BOOKKEEPER history: Reports: no COMPUTER BOOKKEEPER history - Social History Smoking Status: Never smoker Smokeless Tobacco Status: No Alcohol use: Reports: none Drug use: Reports: none Physical Exam - General Limitations: altered mental status General appearance: other (pt sleeping on exam. awakens to voice and can answer most questions appropriately but then falls back asleep.) - Head Head exam: atraumatic, normocephalic - Eye Eye exam: Present: normal appearance, EOMI - Chest Chest inspection: Present: normal inspection. Absent: tenderness, rash - Respiratory Respiratory exam: Present: normal lung sounds bilaterally. Absent: respiratory distress, wheezes - Cardiovascular Cardiovascular exam: Present: regular rate, normal rhythm - Abdominal Exam Abdominal exam: Present: soft, Non-Tender. Absent: distention, guarding, rebound, rigidity - Extremities Exam Extremities exam: Present: normal inspection. Absent: tenderness, pedal edema - Neurological Exam Neurological exam: Present: alert, CN II-XII intact, other (alert to self and place but not time). Absent: oriented X3, motor sensory deficit - Psychiatric Psychiatric exam: Present: normal affect, normal mood - Skin Skin exam: Present: warm, dry, intact Course Vital Signs Temperature 98.2 F 10/21/18 21:33 Pulse Rate 99 10/21/18 21:33 Respiratory Rate 20 10/21/18 21:33 Blood Pressure 166/103 10/21/18 21:33 O2 Sat by Pulse Oximetry 96 10/21/18 21:33 Temperature 98.2 F 10/21/18 21:33 Pulse Rate 99 10/21/18 21:33 Respiratory Rate 20 10/21/18 21:33 Blood Pressure 166/103 10/21/18 21:33 O2 Sat by Pulse Oximetry 96 10/21/18 21:33 Oxygen Delivery Oxygen Delivery Room Air Altered Mental Status - MDM Narrative Medical decision making narrative: Pt presents from home with altered mental status after being outside all day today. We will pursue an ams workup on this patient with EKG, labs, cxr, urinalysis and head CT. Pt will also be given narcan and a liter of fluids for possible medication overdose and dehydration. 2255 - Pts EKG does not demonstrate any acute ischemia. CXR shows atelectasis in the left lung. Head CT does not demonstrate any acute abnormalities. Pt will be signed out to the night team of Dr. Anguiano pending labs and with disposition being likely admission for further treatment of her alteration in mental status. - Medical Records Medical records reviewed: Yes I reviewed the patient's medical records. - Lab Data Lab results reviewed: Yes I reviewed the patient's lab results. - Radiology Data Radiology results reviewed: Yes I reviewed the patient's radiology results. - EKG Data EKG attestation: Yes I reviewed and interpreted this EKG. EKG results narrative: EKG obtained at 2143 on 10/21/2018 Heart rate 10 6 bpm, QRS duration 71, QT 356, QTC 473 Atrial fibrillation with rapid ventricular response. No signs of ST segment elevation or depression. No other acute abnormalities. Last EKG dated 01/12/2018 shows sinus rhythm at 54 bpm. No other acute changes when compared to previous EKG. TPA Checklist - LKW: 3-4.5 hrs Add. Warnings/Precautions Patient/family understanding: The patient/family members have been counseled and understood the risk, benefit, and alternatives of treatment. Attestation Statement - Attestation Attestation: Ailyn Avendaño D.O., examined this patient and my medical decision-making was reviewed with the Resident Physician. I agree with the documented findings, disposition and treatment plan as described except to the extent set forth below.
--- NOTE | 2018-10-21 22:50 | Emergency Department Note ---
Disposition Clinical Impression: Altered mental status Qualifiers: Altered mental status type: unspecified Qualified Code(s): R41.82 - Altered mental status, unspecified Disposition: Still a Patient Condition: Good Referrals: Addison Whitney DO [Primary Care Provider] - Forms: ED Satisfaction Letter Time of Disposition: 22:50 General Adult HPI - General Chief complaint: ED Altered Mental Status Stated complaint: [facility]. been sleeping. afib Time Seen by Provider: 10/21/18 21:39 Source: family Limitations: altered mental status - History of Present Illness Pain Scale: 0 - Related Data Home Medications Medication Instructions Recorded Confirmed Apixaban [Eliquis] 5 mg PO BID 11/11/17 11/11/17 Aspirin [Lo-Dose Aspirin EC] 81 mg PO DAILY 11/11/17 11/11/17 Citalopram Hydrobromide 30 mg PO HS 11/11/17 11/11/17 [Citalopram HBr] Donepezil [Aricept] 5 mg PO HS 11/11/17 11/11/17 Ferrous Sulfate [Iron] 325 mg PO 2XW 11/11/17 11/11/17 HydrOXYzine Pamoate [Vistaril] 50 mg PO TID 11/11/17 11/11/17 Mirtazapine [Remeron] 30 mg PO HS 11/11/17 11/11/17 Omeprazole [PriLOSEC] 40 mg PO DAILY 11/11/17 11/11/17 Oxybutynin Chloride [Ditropan XL] 10 mg PO DAILY 11/11/17 11/11/17 risperiDONE [Risperidone] 1 mg PO HS PRN 11/11/17 11/11/17 Previous Rx's Medication Instructions Recorded Metoprolol [Lopressor] 12.5 mg PO BID #30 11/14/17 predniSONE [PredniSONE] 40 mg PO DAILY #4 tablet 01/12/18 Ondansetron ODT [Zofran ODT] 4 mg SL Q4HR PRN #6 tab.rapdis 01/19/18 Allergies Allergy/AdvReac Type Severity Reaction Status Date / Time No Known Allergies Allergy Verified 10/21/18 21:37 Constitutional: Reports: fever, weakness. Denies: chills Cardiovascular: Denies: chest pain, palpitations, dyspnea on exertion Respiratory: Denies: cough, dyspnea, wheezes Gastrointestinal: Reports: abdominal pain, nausea, vomiting. Denies: diarrhea Genitourinary: Denies: dysuria, hematuria Musculoskeletal: Denies: back pain, neck pain Neurological: Denies: headache Endocrine: Reports: fatigue Past Medical History - Past Medical History Medical history: Reports: atrial fibrillation, COPD, dementia, GERD, hyperlipidemia Surgical history: Reports: hysterectomy Psychiatric history: Reports: anxiety LATEXER history: Reports: no LATEXER history - Social History Smoking Status: Never smoker Smokeless Tobacco Status: No Alcohol use: Reports: none Drug use: Reports: none Physical Exam - General Limitations: altered mental status General appearance: other (pt sleeping on exam. awakens to voice and can answer most questions appropriately but then falls back asleep.) Course Vital Signs Temperature 98.2 F 10/21/18 21:33 Pulse Rate 99 10/21/18 21:33 Respiratory Rate 20 10/21/18 21:33 Blood Pressure 166/103 10/21/18 21:33 O2 Sat by Pulse Oximetry 96 10/21/18 21:33 Temperature 98.2 F 10/21/18 21:33 Pulse Rate 99 10/21/18 21:33 Respiratory Rate 20 10/21/18 21:33 Blood Pressure 166/103 10/21/18 21:33 O2 Sat by Pulse Oximetry 96 10/21/18 21:33 Oxygen Delivery Oxygen Delivery Room Air Attestation Statement - Attestation Attestation: Ailyn Avendaño D.O., examined this patient and my medical decision-making was reviewed with the Resident Physician. I agree with the documented findings, disposition and treatment plan as described except to the extent set forth below. This is a 73-year-old female with a history of atrial fibrillation on Eliquis, dementia who presents due to altered mental status. Daughter states that she was at her daycare today and when she came home she has been sleeping ever since. She did have an episode of vomiting there. Daughter states no trauma was reported her. No change in her medications. Patient was otherwise at her baseline recently. No other complaints. Exam: Patient is arousable to verbal stimuli. She easily falls back asleep. She does follow commands when she wakes up. Her pupils are equal and reactive to light. She has normal motor strength in the upper and lower extremities. Heart is irregularly irregular, tachycardic. Lungs are clear to auscultation bilaterally. Abdomen is soft, nontender, no guarding or distention. Plan: CT of the head, chest x-ray, EKG, labs and urinalysis. ED Procedure Note: EKG interpretation - I agree with the resident physician's documentation and interpretation of the patient's EKG. Atrial fibrillation with RVR with a rate of 106. Normal axis. Normal intervals. Normal R-wave progression. No gross ST elevations or depressions. No acute ischemic findings. Lab still pending. The patient will be [facility] team pending final disposition.
[2018-10-21 23:08] LABS: Basophils # 0.1 K/mcL (0.0-0.2); Basophils % 0.8 %; Eosinophils # 0.3 K/mcL (0.0-0.6); Hematocrit 42.7 % (35.3-44.9); Hemoglobin 13.7 g/dL (11.5-15.4); Immature Granulocytes % 0.5 % (0-4); Lymphocytes # 3.5 K/mcL (0.6-4.6); Mean Corpuscular HGB Conc 32.1 g/dL (31.6-35.5); Mean Corpuscular Hemoglobin 26.2 pg (28.0-33.3); Mean Corpuscular Volume 81.8 fL (83.0-100.0); Mean Platelet Volume 9.4 fL (9.4-12.4); Monocytes # 0.7 K/mcL (0.0-1.3); Monocytes % 8.3 %; Neutrophils # 4.1 K/mcL (1.6-8.9); Platelet Count 171 K/mcL (140-400); Red Blood Count 5.22 M/mcL (3.82-4.97); Red Cell Distribution Width 13.8 % (11.5-14.5); Segmented Neutrophils % 47.4 %; White Blood Count 8.7 K/mcL (4.3-11.1)
[2018-10-21 23:16] LABS: INR 1.3; Prothrombin Time 15.1 Seconds (9.4-12.1)
[2018-10-21 23:18] LABS: Bacteria,Urine None Seen per hpf (None-Few); Hyaline Casts,Urine Few per lpf (None-Few); RBC,Urine 0-3 per hpf (0-3); Squamous Epithelial Cell,Urine Many per lpf (None-Few)
[2018-10-21 23:19] LABS: Activated Partial Thrombo Time 36.3 Seconds (26.0-36.0)
[2018-10-21 23:20] LABS: Bilirubin,Urine Negative (Negative); Clarity,Urine Clear (Clear); Color,Urine Yellow (Yellow); Glucose,Urine (UA) Normal (Normal); Ketones,Urine Negative (Negative)
[2018-10-21 23:21] LABS: Blood,Urine Negative (Negative); Leukocyte Esterase,Urine Negative (Negative); Nitrite,Urine Negative (Negative); Protein,Urine Negative (Neg-Trace); Specific Gravity,Urine 1.021 (1.010-1.025); Urobilinogen,Urine Normal (Normal)
--- NOTE | 2018-10-21 23:21 | Emergency Department Note ---
Disposition Clinical Impression: Altered mental status Qualifiers: Altered mental status type: somnolence Qualified Code(s): R40.0 - Somnolence Disposition: Admitted As Inpatient Condition: Good Referrals: Addison Whitney DO [Primary Care Provider] - Forms: ED Satisfaction Letter Time of Disposition: 23:40 General Adult HPI - General Chief complaint: ED Altered Mental Status Stated complaint: came home from [facility]. been sleeping. afib Time Seen by Provider: 10/21/18 21:39 Source: family Limitations: altered mental status - History of Present Illness Pain Scale: 0 - Related Data Home Medications Medication Instructions Recorded Confirmed Apixaban [Eliquis] 5 mg PO BID 11/11/17 11/11/17 Aspirin [Lo-Dose Aspirin EC] 81 mg PO DAILY 11/11/17 11/11/17 Citalopram Hydrobromide 30 mg PO HS 11/11/17 11/11/17 [Citalopram HBr] Donepezil [Aricept] 5 mg PO HS 11/11/17 11/11/17 Ferrous Sulfate [Iron] 325 mg PO 2XW 11/11/17 11/11/17 HydrOXYzine Pamoate [Vistaril] 50 mg PO TID 11/11/17 11/11/17 Mirtazapine [Remeron] 30 mg PO HS 11/11/17 11/11/17 Omeprazole [PriLOSEC] 40 mg PO DAILY 11/11/17 11/11/17 Oxybutynin Chloride [Ditropan XL] 10 mg PO DAILY 11/11/17 11/11/17 risperiDONE [Risperidone] 1 mg PO HS PRN 11/11/17 11/11/17 Previous Rx's Medication Instructions Recorded Metoprolol [Lopressor] 12.5 mg PO BID #30 11/14/17 predniSONE [PredniSONE] 40 mg PO DAILY #4 tablet 01/12/18 Ondansetron ODT [Zofran ODT] 4 mg SL Q4HR PRN #6 tab.rapdis 01/19/18 Allergies Allergy/AdvReac Type Severity Reaction Status Date / Time No Known Allergies Allergy Verified 10/21/18 21:37 Constitutional: Reports: fever, weakness. Denies: chills Cardiovascular: Denies: chest pain, palpitations, dyspnea on exertion Respiratory: Denies: cough, dyspnea, wheezes Gastrointestinal: Reports: abdominal pain, nausea, vomiting. Denies: diarrhea Genitourinary: Denies: dysuria, hematuria Musculoskeletal: Denies: back pain, neck pain Neurological: Denies: headache Endocrine: Reports: fatigue Past Medical History - Past Medical History Medical history: Reports: atrial fibrillation, COPD, dementia, GERD, hyperlipidemia Surgical history: Reports: hysterectomy Psychiatric history: Reports: anxiety PROCESS SAFETY MANAGER history: Reports: no PROCESS SAFETY MANAGER history - Social History Smoking Status: Never smoker Smokeless Tobacco Status: No Alcohol use: Reports: none Drug use: Reports: none Physical Exam - General Limitations: altered mental status General appearance: other (pt sleeping on exam. awakens to voice and can answer most questions appropriately but then falls back asleep.) Course Vital Signs Temperature 98.2 F 10/21/18 21:33 Pulse Rate 99 10/21/18 21:33 Respiratory Rate 20 10/21/18 21:33 Blood Pressure 166/103 10/21/18 21:33 O2 Sat by Pulse Oximetry 96 10/21/18 21:33 Temperature 98.2 F 10/21/18 21:33 Pulse Rate 102 10/21/18 23:00 Respiratory Rate 16 10/21/18 23:00 Blood Pressure 142/33 10/21/18 23:00 O2 Sat by Pulse Oximetry 96 10/21/18 23:00 Oxygen Delivery Oxygen Delivery Room Air Medical Decision Making - Lab Data Result diagrams: 10/21/18 22:55 10/21/18 22:55 Lab Results 10/21/18 10/21/18 10/21/18 Range/Units 22:55 22:55 22:55 WBC 8.7 (4.3-11.1) K/mcL RBC 5.22 H (3.82-4.97) M/mcL Hgb 13.7 (11.5-15.4) g/dL Hct 42.7 (35.3-44.9) % MCV 81.8 L (83.0-100.0) fL MCH 26.2 L (28.0-33.3) pg MCHC 32.1 (31.6-35.5) g/dL RDW 13.8 (11.5-14.5) % Plt Count 171 (140-400) K/mcL MPV 9.4 (9.4-12.4) fL Immature Gran % 0.5 (0-4) % Seg Neutrophils % 47.4 % Lymphocytes % 40.0 % Monocytes % 8.3 % Eosinophils % 3.0 % Basophils % 0.8 % Neutrophils # 4.1 (1.6-8.9) K/mcL Lymphocytes # 3.5 (0.6-4.6) K/mcL Monocytes # 0.7 (0.0-1.3) K/mcL Eosinophils # 0.3 (0.0-0.6) K/mcL Basophils # 0.1 (0.0-0.2) K/mcL PT 15.1 H (9.4-12.1) Seconds INR 1.3 APTT 36.3 H (26.0-36.0) Seconds Sodium 141 (136-145) mEq/L Potassium 3.9 (3.5-5.1) mEq/L Chloride 103 (98-107) mEq/L Carbon Dioxide 29 (23-29) mEq/L BUN 33 H (8-23) mg/dL Creatinine 1.31 H (0.60-1.20) mg/dL Est GFR ( Amer) 49 L (> 60) Est GFR (Non-Af Amer) 40 L (> 60) BUN/Creatinine Ratio 25 (6-26) Glucose 89 (70-105) mg/dL Calculated Osmolality 299 (280-300) Calcium 10.1 (8.6-10.3) mg/dL Total Bilirubin 0.6 (0.3-1.0) mg/dL Direct Bilirubin 0.1 (0.0-0.2) mg/dL Indirect Bilirubin 0.5 (0.0-1.2) mg/dL AST 29 (13-39) Units/L ALT 31 (7-52) Units/L Alkaline Phosphatase 80 (34-104) Units/L Creatine Kinase 360 H (30-223) Units/L Troponin I < 0.03 (< 0.04) ng/mL Serum Total Protein 6.8 (6.4-8.9) g/dL Albumin 4.1 (3.5-5.7) g/dL Globulin 2.7 (2.4-3.5) g/dL Albumin/Globulin Ratio 1.5 (1.1-2.2) Urine Color (Yellow) Urine Clarity (Clear) Urine pH (5.0-8.0) pH Units Ur Specific [place] (1.010-1.025) Urine Protein (Neg-Trace) mg/dL Urine Glucose (UA) (Normal) mg/dL Urine Ketones (Negative) mg/dL Urine Blood (Negative) Urine Nitrite (Negative) Urine Bilirubin (Negative) Urine Urobilinogen (Normal) mg/dL Ur Leukocyte Esterase (Negative) Urine Microscopic RBC (0-3) per hpf Ur Squamous Epith Cells (None-Few) per lpf Urine Bacteria (None-Few) per hpf Hyaline Casts (None-Few) per lpf Ur Culture Indicated? (NO) Urine Opiates Screen (Asrwzm=799) ng/mL Ur Buprenorphine Scrn (Cutoff=5) ng/mL Ur Barbiturates Screen (Ndhnvk=841) ng/mL Ur Phencyclidine Scrn (Cutoff=25) ng/mL Ur Amphetamines Screen (Dyahrg=1499) ng/mL U Benzodiazepines Scrn (Izdezw=251) ng/mL Urine Cocaine Screen (Cutoff= 300) ng/mL U Marijuana (THC) Screen (Cutoff = 50) ng/mL Ur Drug Screen Interp Ethyl Alcohol < 10 (Less than 10) mg/dL 10/21/18 10/21/18 Range/Units 23:04 23:04 WBC (4.3-11.1) K/mcL RBC (3.82-4.97) M/mcL Hgb (11.5-15.4) g/dL Hct (35.3-44.9) % MCV (83.0-100.0) fL MCH (28.0-33.3) pg MCHC (31.6-35.5) g/dL RDW (11.5-14.5) % Plt Count (140-400) K/mcL MPV (9.4-12.4) fL Immature Gran % (0-4) % Seg Neutrophils % % Lymphocytes % % Monocytes % % Eosinophils % % Basophils % % Neutrophils # (1.6-8.9) K/mcL Lymphocytes # (0.6-4.6) K/mcL Monocytes # (0.0-1.3) K/mcL Eosinophils # (0.0-0.6) K/mcL Basophils # (0.0-0.2) K/mcL PT (9.4-12.1) Seconds INR APTT (26.0-36.0) Seconds Sodium (136-145) mEq/L Potassium (3.5-5.1) mEq/L Chloride (98-107) mEq/L Carbon Dioxide (23-29) mEq/L BUN (8-23) mg/dL Creatinine (0.60-1.20) mg/dL Est GFR ( Amer) (> 60) Est GFR (Non-Af Amer) (> 60) BUN/Creatinine Ratio (6-26) Glucose (70-105) mg/dL Calculated Osmolality (280-300) Calcium (8.6-10.3) mg/dL Total Bilirubin (0.3-1.0) mg/dL Direct Bilirubin (0.0-0.2) mg/dL Indirect Bilirubin (0.0-1.2) mg/dL AST (13-39) Units/L ALT (7-52) Units/L Alkaline Phosphatase (34-104) Units/L Creatine Kinase (30-223) Units/L Troponin I (< 0.04) ng/mL Serum Total Protein (6.4-8.9) g/dL Albumin (3.5-5.7) g/dL Globulin (2.4-3.5) g/dL Albumin/Globulin Ratio (1.1-2.2) Urine Color Yellow (Yellow) Urine Clarity Clear (Clear) Urine pH 5.0 (5.0-8.0) pH Units Ur Specific [place] 1.021 (1.010-1.025) Urine Protein Negative (Neg-Trace) mg/dL Urine Glucose (UA) Normal (Normal) mg/dL Urine Ketones Negative (Negative) mg/dL Urine Blood Negative (Negative) Urine Nitrite Negative (Negative) Urine Bilirubin Negative (Negative) Urine Urobilinogen Normal (Normal) mg/dL Ur Leukocyte Esterase Negative (Negative) Urine Microscopic RBC 0-3 (0-3) per hpf Ur Squamous Epith Cells Many H (None-Few) per lpf Urine Bacteria None Seen (None-Few) per hpf Hyaline Casts Few (None-Few) per lpf Ur Culture Indicated? NO (NO) Urine Opiates Screen Negative (Cqjfdq=280) ng/mL Ur Buprenorphine Scrn Negative (Cutoff=5) ng/mL Ur Barbiturates Screen Negative (Nrzkzh=821) ng/mL Ur Phencyclidine Scrn Negative (Cutoff=25) ng/mL Ur Amphetamines Screen Negative (Mknosq=6635) ng/mL U Benzodiazepines Scrn Negative (Npdgrs=212) ng/mL Urine Cocaine Screen Negative (Cutoff= 300) ng/mL U Marijuana (THC) Screen Negative (Cutoff = 50) ng/mL Ur Drug Screen Interp See Below Ethyl Alcohol (Less than 10) mg/dL Attestation Statement - Attestation Attestation: Care of patient assumed from Dr. Avendaño pending labs, CT head, reevaluation. Patient presented with somnolence. Workup as endorsed to me at the time of signout is pending Exam the patient is somnolent but easily arousable. The patient will be admitted to the medicine service
[2018-10-21 23:24] LABS: Amphetamine Screen,Urine Negative ng/mL (Cutoff=1000); Barbiturate Screen,Urine Negative ng/mL (Cutoff=200); Benzodiazepines Screen,Urine Negative ng/mL (Cutoff=200); Cannabinoid Screen,Urine Negative ng/mL (Cutoff = 50); Cocaine Screen,Urine Negative ng/mL (Cutoff= 300); Opiate Screen,Urine Negative ng/mL (Cutoff=300); Phencyclidine Screen,Urine Negative ng/mL (Cutoff=25)
[2018-10-21 23:29] LABS: Alanine Aminotransferase 31 Units/L (7-52); Albumin 4.1 g/dL (3.5-5.7); Albumin/Globulin Ratio 1.5 (1.1-2.2); Alkaline Phosphatase 80 Units/L (34-104); Aspartate Amino Transferase 29 Units/L (13-39); BUN/Creatinine Ratio 25 (6-26); Bilirubin,Direct 0.1 mg/dL (0.0-0.2); Bilirubin,Indirect 0.5 mg/dL (0.0-1.2); Bilirubin,Total 0.6 mg/dL (0.3-1.0); Blood Urea Nitrogen 33 mg/dL (8-23); Calcium 10.1 mg/dL (8.6-10.3); Carbon Dioxide 29 mEq/L (23-29); Chloride 103 mEq/L (98-107); Creatine Kinase 360 Units/L (30-223); Ethanol < 10 mg/dL (Less than 10); Globulin 2.7 g/dL (2.4-3.5); Glucose 89 mg/dL (70-105); Osmolality,Calculated 299 (280-300); Potassium 3.9 mEq/L (3.5-5.1); Sodium 141 mEq/L (136-145); Total Protein 6.8 g/dL (6.4-8.9); Troponin I < 0.03 ng/mL (< 0.04); eGFR For African Americans 49 (> 60); eGFR For Non-African Americans 40 (> 60)
[2018-10-22] MEDS ORDERED: Naloxone 0.4 MG/ML INJ IVP PRN (06:33)
[2018-10-22] MEDS ORDERED: 0.9 % Sodium Chloride 1,000 ML IVC ONE (06:40)
--- NOTE | 2018-10-22 06:41 | Internal Med History&Physical ---
Date of Encounter: 10/22/18 Time of Encounter: 05:25 Internal Medicine - H&P: HPI Chief complaint: Altered mental status Admitted From: Emergency Dept Plans for Post Hospital Care: Home History of present illness: Ms. Hill is a 73 year old female Patient presented to the emergency department with altered mental status. Patient attended in adult daycare earlier in the day, and upon returning home she was more lethargic and not acting her usual self. She lives with family, who stated that she did vomit several times as well when she returned home. She had not had symptoms like this previously. She does have a baseline dementia, but her current mental status is different than her normal. Vital signs: Within normal limits CBC unremarkable BMP: Elevated creatinine 1.31, otherwise unremarkable. Creatine kinase 360 Ammonia 26 Liver function tests within normal limits Initial troponin undetectable Urinalysis negative for infection Urine tox screen negative Blood alcohol level less than 10 Chest x-ray showed no airspace consolidation Head CT showed no acute intracranial abnormality Abdomen and pelvis CT showed no acute findings. EKG: Atrial fibrillation, rate 106. QTC [address] elevations or depres sions. Emergency department patient was somnolent, answered questions but would fall asleep shortly after. She was given 1 L of IV fluids and admitted to the hospital for likely polypharmacy effects. Upon my evaluation, patient is resting comfortably in hospital bed in no acute distress. She is awake, alert and oriented 3. She is able to carry on full conversation without falling asleep. She denies chest pain, abdominal pain, nausea, vomiting, diarrhea and constipation. She did admit to the vomiting episodes earlier in the day. She had no complaints. Past Med Surg Social Fam HX - Past Medical History Medical history: atrial fibrillation, COPD, dementia, GERD, hyperlipidemia Additional medical history: emphysema. mental retardation Psychiatric history: anxiety - Past Surgical History Surgical History: hysterectomy Additional surgical history: EGD.bilateral phlebectomy - Social History Smoking Status: Never smoker Smokeless Tobacco Status: No Alcohol use: none Drug use: none - Family History Mother Hx Family Cardiac Disorders: Yes (heart disease) Internal Medicine - H&P: Meds Apixaban [Eliquis] 5 mg PO BID 11/11/17 [History] Aspirin [Lo-Dose Aspirin EC] 81 mg PO DAILY 11/11/17 [History] Citalopram Hydrobromide [Citalopram HBr] 30 mg PO HS 11/11/17 [History] Donepezil [Aricept] 5 mg PO HS 11/11/17 [History] HydrOXYzine Pamoate [Vistaril] 50 mg PO TID 11/11/17 [History] Mirtazapine [Remeron] 30 mg PO HS 11/11/17 [History] Omeprazole [PriLOSEC] 40 mg PO DAILY 11/11/17 [History] Oxybutynin Chloride [Ditropan XL] 10 mg PO DAILY 11/11/17 [History] risperiDONE [Risperidone] 1 mg PO HS PRN 11/11/17 [History] Metoprolol [Lopressor] 12.5 mg PO BID #30 11/14/17 [Rx] Allergy/AdvReac Type Severity Reaction Status Date / Time No Known Allergies Allergy Verified 10/21/18 21:37 All Systems PM: A 10-system review of systems was performed and is negative for pertinent findings except as documented above in the HPI. - Constitutional Vitals: Temp Pulse Resp BP Pulse Ox 97.6 F 109 14 120/80 96 10/22/18 02:33 10/22/18 02:33 10/22/18 02:33 10/22/18 02:33 10/22/18 02:33 General appearance: Present: cooperative, A&O X 3, pleasant, no acute distress, answers questions appropriately Exam: - - Head Head exam: Present: normal inspection - Eye Eye exam: Present: EOMI, normal appearance - Respiratory Respiratory exam: Present: CTAB. Absent: rales, respiratory distress, rhonchi, wheezes - Cardiovascular Cardiovascular exam: Present: irregular rhythm. Absent: diastolic murmur, systolic murmur - GI/Abdominal GI/Abdominal exam: Present: normal bowel sounds, soft. Absent: tenderness - Extremities Exam Extremities exam: Present: warm, radial pulses palpable and symmetrical. Absent: calf tenderness, pedal edema, tenderness - Neurological Exam Neurological exam: Present: alert, oriented X3, no focal deficits, strengths equal and symetr throughout. Absent: altered, motor sensory deficit, facial droop, speech deficit - Skin Skin exam: Present: dry, normal color, warm Internal Med - H&P Results - Labs CBC & Chem 7: 10/21/18 22:55 10/21/18 22:55 Labs: Short CBC 10/21/18 Range/Units 22:55 WBC 8.7 (4.3-11.1) K/mcL Hgb 13.7 (11.5-15.4) g/dL Hct 42.7 (35.3-44.9) % Plt Count 171 (140-400) K/mcL Neutrophils # 4.1 (1.6-8.9) K/mcL BMP 10/21/18 22:55 Sodium 141 Potassium 3.9 Chloride 103 Carbon Dioxide 29 BUN 33 H Creatinine 1.31 H Glucose 89 Calcium 10.1 Cardiac Enzymes 10/21/18 Range/Units 22:55 Troponin I < 0.03 (< 0.04) ng/mL Liver Function 10/21/18 Range/Units 22:55 Total Bilirubin 0.6 (0.3-1.0) mg/dL Direct Bilirubin 0.1 (0.0-0.2) mg/dL AST 29 (13-39) Units/L ALT 31 (7-52) Units/L Alkaline Phosphatase 80 (34-104) Units/L Albumin 4.1 (3.5-5.7) g/dL Urine 10/21/18 Range/Units 23:04 Urine Color Yellow (Yellow) Urine Clarity Clear (Clear) Urine pH 5.0 (5.0-8.0) pH Units Ur Specific [place] 1.021 (1.010-1.025) Urine Protein Negative (Neg-Trace) mg/dL Urine Glucose (UA) Normal (Normal) mg/dL - Impressions ITS Impressions Chest X-Ray 10/21/18 22:00 IMPRESSION: No airspace consolidation. Left basilar atelectasis. D/ / Harry Iyer / Harry Iyer Interpreting Provider: Harry Iyer Head CT 10/21/18 22:01 IMPRESSION: No acute intracranial abnormality. D/ / Harry Iyer / Harry Iyer Interpreting Provider: Harry Iyer Abdomen/Pelvis CT 10/21/18 23:02 IMPRESSION: No acute abdominopelvic findings. Irregular soft tissue overlying the sacrum. This could represent early changes of decubitus ulcer. Please correlate clinically. D/ / Harry Iyer / Harry Iyer Interpreting Provider: Harry Iyer - Assessment and Plan (1) Altered mental status Current Visit: Yes Status: Acute Assessment and plan: Now seems resolved. Patient's current presentation different than her ER presentation. It is thought that maybe due to her many sedating medicines that she is on perhaps the combined effect caused her to be more somnolent. There have been no medicine changes recently however. Patient also low but dehydrated which may be contributing. She received 1 L of IV fluids in the ER and her medicines from home were held overnight. Continue to monitor Consider restarting home meds in the morning Qualifiers: Altered mental status type: somnolence Qualified Code(s): R40.0 - Somnolence (2) JOAN (acute kidney injury) Current Visit: Yes Status: Acute Assessment and plan: Elevated creatinine at 1.31 above her normal. Patient received 1 L of IV fluids in the ER. Repeat labs in the morning Continue IV fluid hydration (3) Atrial fibrillation Current Visit: No Status: Chronic Assessment and plan: Chronic atrial fibrillation, patient takes Eliquis and metoprolol at home. Due to her presenting condition of increased somnolence home meds were mainly held overnight. Continue Eliquis Restart home meds in the morning if patient continues to be stable Qualifiers: Atrial fibrillation type: chronic Qualified Code(s): I48.2 - Chronic atrial fibrillation (4) Dementia Current Visit: No Status: Chronic Assessment and plan: Continue home meds at discharge Qualifiers: Dementia type: unspecified type Dementia behavioral disturbance: without behavioral disturbance Qualified Code(s): F03.90 - Unspecified dementia without behavioral disturbance (5) DVT prophylaxis Current Visit: Yes Status: Acute Assessment and plan: Continue home Eliquis - Time Spent With Patient Total time spent is greater than 50% in coordination of care (as documented) at patient's floor/unit and/or counseling patient: Greater than 35 minutes
[2018-10-22 07:17] VITALS: BP 127/79
[2018-10-22 08:15] LABS: Hematocrit 40.3 % (35.3-44.9); Hemoglobin 12.7 g/dL (11.5-15.4); Mean Corpuscular HGB Conc 31.5 g/dL (31.6-35.5); Mean Corpuscular Hemoglobin 26.2 pg (28.0-33.3); Mean Corpuscular Volume 83.1 fL (83.0-100.0); Mean Platelet Volume 9.5 fL (9.4-12.4); Platelet Count 165 K/mcL (140-400); Red Blood Count 4.85 M/mcL (3.82-4.97); Red Cell Distribution Width 13.7 % (11.5-14.5); White Blood Count 6.8 K/mcL (4.3-11.1)
[2018-10-22 08:33] LABS: Calcium 9.2 mg/dL (8.6-10.3); Potassium 3.9 mEq/L (3.5-5.1)
[2018-10-22] MEDS ORDERED: Apixaban 5 MG TABLET PO SCH (09:00)
[2018-10-22] MEDS ORDERED: risperiDONE 1 MG TABLET PO PRN (09:11)
--- NOTE | 2018-10-22 10:39 | Discharge Summary ---
- NOTES TO OUTPATIENT PROVIDER Notes to Outpatient Provider: f/u with PCP in one week. If HR persistently elevated above 100, please increase your Metoprolol to 25mg pO BID. Date of Encounter: 10/22/18 Time of Encounter: 10:24 - Discharge Diagnosis (1) Altered mental status Priority: Primary Status: Acute Assessment and Plan: Due to metabolic encephalopathy with dehydration Qualifiers: Altered mental status type: somnolence Qualified Code(s): R40.0 - Somnolence (2) JOAN (acute kidney injury) Priority: Primary Status: Acute (3) Atrial fibrillation Priority: Secondary Status: Chronic Qualifiers: Atrial fibrillation type: chronic Qualified Code(s): I48.2 - Chronic atrial fibrillation (4) Dementia Priority: Secondary Status: Chronic Qualifiers: Dementia type: unspecified type Dementia behavioral disturbance: without behavioral disturbance Qualified Code(s): F03.90 - Unspecified dementia without behavioral disturbance (5) DVT prophylaxis Priority: Secondary Status: Acute Hospital course: Ms. Hill is a 73 year old female with known past medical history of hypertension, hyperlipidemia, A fib on Eliquis for anti coag, and advanced dementia pt presented to the emergency department with altered mental status. Patient attended in adult daycare yesterday and was out side most of the day and upon returning home she was more lethargic and not acting her usual self. Patient did develop mild AKA due to dehydration. She was admitted in the hospital and placed her on classroom monitor. She was started on IV hydration her creatinine started improving slowly. Today patient mentation much better. Patient's family feels like patient is back to baseline. She does not have any signs / source of inf. Recommended to hydrate well and d/c her home in stable condition today. - Time Spent with Patient Total time spent providing and/or coordinating discharge services: - Discharge Medications Prescriptions: Continued Citalopram Hydrobromide [Citalopram HBr] 30 mg PO HS HydrOXYzine Pamoate [Vistaril] 50 mg PO TID Apixaban [Eliquis] 5 mg PO BID Donepezil [Aricept] 5 mg PO HS Mirtazapine [Remeron] 30 mg PO HS Aspirin [Lo-Dose Aspirin EC] 81 mg PO DAILY Omeprazole [PriLOSEC] 40 mg PO DAILY Oxybutynin Chloride [Ditropan XL] 10 mg PO DAILY risperiDONE [Risperidone] 1 mg PO HS PRN PRN Reason: behavior Metoprolol [Lopressor] 12.5 mg PO BID #30 Home Medications: Apixaban [Eliquis] 5 mg PO BID 11/11/17 [History] Aspirin [Lo-Dose Aspirin EC] 81 mg PO DAILY 11/11/17 [History] Citalopram Hydrobromide [Citalopram HBr] 30 mg PO HS 11/11/17 [History] Donepezil [Aricept] 5 mg PO HS 11/11/17 [History] HydrOXYzine Pamoate [Vistaril] 50 mg PO TID 11/11/17 [History] Mirtazapine [Remeron] 30 mg PO HS 11/11/17 [History] Omeprazole [PriLOSEC] 40 mg PO DAILY 11/11/17 [History] Oxybutynin Chloride [Ditropan XL] 10 mg PO DAILY 11/11/17 [History] risperiDONE [Risperidone] 1 mg PO HS PRN 11/11/17 [History] Metoprolol [Lopressor] 12.5 mg PO BID #30 11/14/17 [Rx] Allergies/Adverse Reactions: Allergy/AdvReac Type Severity Reaction Status Date / Time No Known Allergies Allergy Verified 10/21/18 21:37 Date of admission: 10/22/18 00:49 Primary care physician: Addison Whitney - Constitutional Vitals: Temp Pulse Resp BP Pulse Ox 97.9 F 98 15 127/79 98 10/22/18 07:16 10/22/18 07:16 10/22/18 07:16 10/22/18 07:16 10/22/18 07:16 General appearance: Present: cooperative, A&O X 3, pleasant, no acute distress, answers questions appropriately Exam: Gen: Alert, awake, Oriented to time,place and person pleasantly demented Chest: Diminished breath sounds B/L, No wheezing, No crackles, No rales Heart: S1S2+ Afib, No murmurs Abd: Soft, NT, BS +, No organomegaly Ext: No edema, pulses are palpable, No calf tenderness Neuro : No acute focal neuro deficits noticed Skin: No rash. - Patient Status Disposition: Home, Self-Care Condition: Good - Discharge Instructions Follow Up With: Addison Whitney DO [Primary Care Provider] - (Appointment has been requested.) - Diet and Activity Activity: increase activity as tolerated Diet: low salt diet
--- NOTE | 2018-10-22 11:19 | Electrocardiograph Report ---
[address] [address] Test Date: 2018-10-21 Pat Name: Winsome Hill Department: EXAM2 Room: 3B13 Gender: Sample Display Preparer: : 1945 Requested By: Jessica Matias Order Number: [id number] Reading MD: Alexandre Dash Measurements Intervals [place] Rate: 106 P: AR: QRS: 21 QRSD: 71 T: QT: 356 QTc: 473 Interpretive Statements Atrial fibrillation Low voltage, precordial leads Abnormal R-wave progression, early transition Borderline repolarization abnormality Electronically Signed On 10-22-2018 11:17:45 EDT by Alexandre Dash
[2018-10-22] MEDS ORDERED: hydrOXYzine pamoate 25 MG CAPSULE PO SCH (15:00)
[2018-10-22] MEDS ORDERED: Mirtazapine 15 MG TABLET PO SCH (21:00)
[2018-10-23] MEDS ORDERED: Aspirin Enteric Coated 81 MG Tablet PO SCH (09:00)
== END 2018-10-22 11:38 | disposition home or self-care (01) ==
LOC: 3BNU 21:30 → EMEROOARM 21:30 → SUATTDRO 10-22 00:49 → 3BNU 10-22 01:11
PROVIDERS: ADMIT Family Medicine; ATTEND Family Medicine